=== PATIENT | male | born 1990 | race Caucasian/White ===

== ENCOUNTER → 2020-10-12 06:58 | Outpatient (CLI) | payer OTHER, SELFPAY ==
[2020-10-13 18:59] LABS: SARS-CoV-2 RNA PCR Negative
== END ==
PROVIDERS: PCP Nurse Practitioner Family; Visit Provider Internal Medicine
DX: Z20.822 Contact with and (suspected) exposure to COVID-19 (principal)
CPT/HCPCS: C9803; U0003; U0005

== ENCOUNTER 2023-05-15 09:05 | Emergency (ER) | payer OTHER, SELFPAY ==
[2023-05-15 09:14] VITALS: BP 118/75; PULSE 85; RESP 20; TEMP 36.8; O2SAT 96
--- NOTE | 2023-05-15 09:17 | ED.GENADULT ---
HPI - General Adult General Chief complaint: Upper Respiratory Infection Stated complaint: aches/fever Source: patient and RN notes reviewed History of Present Illness HPI narrative: 32-year-old male presents to urgent care with complaints sore throat, fevers, chills, body aches, and headache. Patient states this started yesterday afternoon. patient states his children had strep throat last week. Denies any chest pain, shortness of vomiting, diarrhea, or dysuria. Patient has taken ibuprofen and Mucinex. Related Data Allergies Allergy/AdvReac Type Severity Reaction Status Date / Time No Known Allergies Allergy Unverified 05/15/23 09:20 Review of Systems Review of Systems: Pertinent positives and pertinent negatives per HPI. PMFSH Comments At the time of my signature, I reviewed and agree with the nursing past medical, surgical, social, and family history. There is no relevant family history pertinent to the patient complaint. Exam Narrative: GENERAL: This is a well-nourished, well-developed patient, in no apparent distress. HEAD: normocephalic, atraumatic. EYES: Sclera clear/white. Vision is grossly intact. EARS: External ears normal, auditory canals clear and without drainage. Hearing grossly intact. NOSE: External nose normal with no obvious nasal discharge, nares without redness, no rhinorrhea. THROAT: Mucous membranes moist, posterior pharynx erythremic NECK: Neck supple, non-tender without lymphadenopathy, masses or thyromegaly. CARDIOVASCULAR: Regular rate and rhythm without murmurs, gallops, or rubs. RESPIRATORY: Clear to auscultation. Breath sounds equal bilaterally. No wheezes, rales, or rhonchi. SKIN: warm, intact with no suspicious lesions or rash, good texture and turgor. NEURO: awake, alert, and oriented to person, place and time. There were no obvious focal neurologic abnormalities. EXTREMITIES: No clubbing, cyanosis, or edema. No joint tenderness, effusion, or edema noted. BACK: Nontender without deformity or crepitus. No flank tenderness. Course Course Level of Care: Express Care Visit Vital Signs Vital signs: Vital Signs Temperature 98.3 F 05/15/23 09:14 Pulse Rate 85 05/15/23 09:14 Respiratory Rate 20 05/15/23 09:14 Blood Pressure 118/75 05/15/23 09:14 Pulse Oximetry 96 05/15/23 09:14 Oxygen Delivery Room Air 05/15/23 09:14 Temperature 98.3 F 05/15/23 09:14 Pulse Rate 85 05/15/23 09:14 Respiratory Rate 20 05/15/23 09:14 Blood Pressure 118/75 05/15/23 09:14 Pulse Oximetry 96 05/15/23 09:14 Oxygen Delivery Room Air 05/15/23 09:14 Reviewed Medical Decision Making MDM Narrative Medical decision making narrative: After 24 hours on antibiotics throw tooth brush away and start using a new one. Increase your Vitamin C. Do not share drinks. Take Motrin alternating with Tylenol for pain and/or fever alternating every 4 hours. Increase fluids, avoid caffeine. Take a probiotic daily or eat a low sugar yogurt while taking the antibiotic. Follow up with Primary provider if not getting better this week Differential Diagnosis Differential Diagnosis: strep throat, viral pharyngitis, URI Vital Signs Vital Signs: Vital Signs Temperature 98.3 F 05/15/23 09:14 Pulse Rate 85 05/15/23 09:14 Respiratory Rate 20 05/15/23 09:14 Blood Pressure 118/75 05/15/23 09:14 Pulse Oximetry 96 05/15/23 09:14 Oxygen Delivery Room Air 05/15/23 09:14 Temperature 98.3 F 05/15/23 09:14 Pulse Rate 85 05/15/23 09:14 Respiratory Rate 20 05/15/23 09:14 Blood Pressure 118/75 05/15/23 09:14 Pulse Oximetry 96 05/15/23 09:14 Oxygen Delivery Room Air 05/15/23 09:14 Lab Data Lab results reviewed: Yes I reviewed the patient's lab results. Labs: Strep Screen Positive Group A Strep *(Reference Range: Negative)* Critical Care Time Critical Care Time Critical Care Ti
== END 2023-05-15 09:36 | disposition home or self-care (01) ==
PROVIDERS: Emergency Provider Nurse Practitioner Family
DX: J02.0 Streptococcal pharyngitis (principal)
CPT/HCPCS: 87880; 99213; G0463

== ENCOUNTER 2024-09-07 08:49 | Emergency (ER) | payer OTHER, SELFPAY ==
[2024-09-07 08:56] VITALS: BP 127/82; PULSE 92; RESP 20; TEMP 38; O2SAT 100
--- OUTSIDE RECORDS SUMMARY | 2024-09-07 09:02 | XMS_ITS | Referral Summary ---
Author Organization [address] Address [address] [place] [address] Care Team Providers Care Cook Mayonnaise Name Role Phone No, Physician Primary Care Provider [phone] Allergies No known active allergies Medications albuterol HFA (ProAir HFA) 90 mcg/actuation inhalerIndicati ons:Chest tightness Inhale 2 puffs every 4 (four) hours as needed for wheezing or shortness of breath 8.5 g 2 0 Active ibuprofen 200 mg tab/cap Take 1 tablet/capsule (200 mg total) by mouth every 6 (six) hours as needed for pain Active Active Problems No known active problems Immunizations Name Administration Dates Next Due DTP 06/03/1993,06/07/1992,04/05/1992 ,02/03/1992 Hep B, Adolescent or Pediatric 10/01/1995,1994,04/01/1995 HiB 03/03/1993,06/07/1992,04/05/1992 ,02/03/1992 Influenza, Unspecified 08/23/2019(Deferr ed: Patient Refused),08/04/2018(Deferred: Patient Refused) MMR 03/03/1993 OPV 06/03/1993,06/07/1992,04/05/1992 ,02/03/1992 Social History Tobacco Use Types Packs/Day Years Used Date Smoking Tobacco: Former Alcohol Use Standard Drinks/Week Comments Yes 0 (1 standard drink = 0.6 oz pur e alcohol) PHQ-2 Answer Date Recorded PHQ-2 Total Score (If total score is 3 or more points, staff should administer the PHQ-9) 0 03/28/2020 Personal Safety Answer Date Recorded Getting School Help Needed Not on file 12/27 Sex and Gender Information Value Date Recorded Sex Assigned at Not on file 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 Gender Identity Not on file Sexual Orientation Not on file Last Filed Vital Signs Vital Sign Reading Time Taken Comments Blood Pressure 133/78 10/07/2023 2:10 PM [employer]ICONDUCTOR ENGINEER Pulse 63 10/07/2023 2:10 PM [employer]ICONDUCTOR ENGINEER Temperature 37 ??C (98.6 ??F) 12/24/2022 10:43 AM CDT Respiratory Rate 18 12/24/2022 10:43 AM CDT Oxygen Saturation 99% 12/24/2022 11:00 AM CDT Inhaled Oxygen Concentration - - Weight 81.2 kg (179 lb) 10/07/2023 2:10 PM [employer]IC[employer]UCTOR ENGINEER Height 172.7 cm (5' 8 ) 10/07/2023 2:10 PM [employer]ICONDUCTOR ENGINEER Body Mass Index 27.22 10/07/2023 2:10 PM SEMICONDUCTOR ENGINEER Plan of Treatment Not on file [facility] Care Teams Cook Mayonnaise Relationship Specialty Start Date End Date No, Physician PCP - General 12/24/22
--- OUTSIDE RECORDS SUMMARY | 2024-09-07 09:02 | XMS_ITS | Clinical Summary ---
Author Organization [address] Address [address] [place] [address] Care Team Providers Care Latin American Studies Professor Name Role Phone No, Physician Primary Care Provider Allergies No known active allergies Medications albuterol [...] Patient Refused) MMR 03/03/1993 OPV 06/03/1993,06/07/1992,04/05/1992 ,02/03/1992 Family History Medical History Relation Name Comments Other Brother 2 Alive and well; Hypertension Father Hypertension; Heart attack Mother heart attack; Heart disease Mother Cardiovascular disease; Hypertension Mother Hypertension; Other Sister 2 Alive and well; Relation Name Status Comments Brother 1 Alive Brother 2 Father Alive Mother Alive Sister 1 Alive Sister 2 Social History Tobacco Use Types Packs/Day Years [...] on file 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 Gender Identity Not on file Sexual Orientation Not on file Obstetrics History Last Filed Vital Signs Vital Sign Reading Time Taken Comments Blood Pressure 133/78 10/07/2023 2:10 PM [employer]BALL [employer] Pulse 63 10/07/2023 2:10 PM FO[employer]BALL [employer] Temperature 37 ??C (98.6 ??F) 12/24/2022 10:43 AM CDT Respiratory Rate 18 12/24/2022 10:43 AM CDT Oxygen Saturation 99% 12/24/2022 11:00 AM CDT Inhaled Oxygen Concentration - - Weight 81.2 kg (179 lb) 10/07/2023 2:10 PM FOOTBALL SC[employer] Height 172.7 cm (5' 8 ) 10/07/2023 2:10 PM [employer]BALL [employer] Body Mass Index 27.22 10/07/2023 2:10 PM FOOTBALL [employer] Plan of Treatment Health Maintenance Due Date Last Done Comments Hepatitis C Screening 1991 DTaP/Tdap/Td Vaccine (5 - Tdap) 11/29/2002 06/03/1993, 06/07/1992, 04/05/1992, Additional history exists Regular Well Visit/Exam 18-64 08/23/2020 08/23/2019 Depression Screening 03/28/2021 03/28/2020, 08/23/19 20 Influenza Vaccine (#1) 2024 HPV Vaccines Aged Out No longer eligi ble based on patient's age to complete this topic Pneumococcal vaccine <65 Aged Out No longer eligible based on patient's age to complete this topic Varicella Vaccines Discontinued Insurance [facility] [employer] HMO AETNA [facility] AETNA HEALTHCARE HMO AETNA [facility] HMO Care Teams Latin American Studies Professor Relationship Specialty Start Date End Date No, Physician PCP - General 12/24/22
--- NOTE | 2024-09-07 09:08 | ED.URI ---
HPI - URI/Sore Throat General Chief Complaint: Upper Respiratory Infection Stated Complaint: cough/headache Source: patient and RN notes reviewed Mode of arrival: ambulatory Limitations: no limitations History of Present Illness HPI Narrative: 33-year-old male presented for complaint of headache, body aches, cough, fever/chills. onset 2 days. Denies sob, wheezing, n/v/d. Taking DayQuil, NyQuil and Mucinex for symptoms. MD elicited complaint: cough Related Data Allergies Allergy/AdvReac Type Severity Reaction Status Date / Time No Known Allergies Allergy Unverified 05/15/23 09:20 Review of Systems Review of Systems: Per HPI Exam Narrative: GENERAL: mildly Ill-appearing, nontoxic no acute distress. EYES: PERRLA, conjunctivae clear ENT: Mucous membranes moist. TMs erythematous with dull light reflex bilaterally; no tragal tenderness. Oropharynx erythematous without lesions or exudate, no drooling, no hoarseness, no trismus, uvula midline. No tripod positioning, muffled voice, soft palate or pharyngeal wall bulging NECK: Supple. No lymphadenopathy CHEST: Clear to auscultation, breath sounds equal. No wheezing, rhonchi, rales, or stridor. No respiratory distress, speaks in full sentences. HEART: Regular rate and rhythm. No murmur heard. SKIN: Warm, dry, no rash. NEURO: Alert and oriented x3. PSYCH: Normal mood and affect Course Course Emergency Course: Patient is aware of diagnosis, understands and agrees to treatment plan. Anticipatory guidance given. Patient agrees to follow-up as directed and is aware of reasons to seek care at the emergency department. Portions of this record may have been created with voice recognition software Level of Care: Express Care Visit Vital Signs Vital signs: Vital Signs Temperature 100.4 F H 09/07/24 08:56 Pulse Rate 92 09/07/24 08:56 Respiratory Rate 20 09/07/24 08:56 Blood Pressure 127/82 09/07/24 08:56 Pulse Oximetry 100 09/07/24 08:56 Oxygen Delivery Room Air 09/07/24 08:56 Temperature 100.4 F H 09/07/24 08:56 Pulse Rate 92 09/07/24 08:56 Respiratory Rate 20 09/07/24 08:56 Blood Pressure 127/82 09/07/24 08:56 Pulse Oximetry 100 02/04/25 08:56 Oxygen Delivery Room Air 09/07/24 08:56 reviewed MDM - URI/Sore Throat MDM Narrative Medical decision making narrative: POS flu. Discussed physical exam findings. Advised supportive measures and signs/symptoms to go to the ER. Pt is appropriate for outpt treatment and f/u. Differential Diagnosis Differential diagnosis: Likely upper respiratory infection, sinusitis and viral infection Discharge Plan Discharge Clinical Impression: Influenza Patient Disposition: Home, Self-Care Condition: Stable Instructions: Influenza (ED) Additional Instructions: Influenza positive You should avoid crowds until you are fever free for 24 hours without the use of fever reducing medications, or the symptoms are improved Rest. Drink plenty of fluids. Tylenol 1000mg every 8 hours as needed for pain/fever Recommend Flonase spray and Zyrtec (or Claritin/Kamla) for sinus pressure/congestion over the counter Cough syrup may cause drowsiness; avoid driving or take it at night time. Follow up with your primary care provider as needed in 1-2 weeks Go to the ER for worsening symptoms or concerns Patient Language: Citizen Of [place] Prescriptions: No Action amoxicillin 500 mg capsule 500 mg PO Q12H Qty: 20 0RF Follow-up/Referrals: PHYSICIAN,SURVEILLANCE INSPECTOR [Primary Care Provider] - Time of Disposition: 09:14
[2024-09-07 09:19] LABS: EDCOVIDSCREEN Negative (Negative); EDINFLUASCREEN Positive (Negative); EDINFLUBSCREEN Negative (Negative)
== END 2024-09-07 09:15 | disposition home or self-care (01) ==
PROVIDERS: Emergency Provider Nurse Practitioner Family
DX: J11.1 Influenza due to unidentified influenza virus with other respiratory manifestations (principal); Z20.822 Contact with and (suspected) exposure to COVID-19
CPT/HCPCS: 87426; 87804; 99212; G0463